=== PATIENT | male | born 1955 | race Caucasian/White ===

== ENCOUNTER → 2019-06-18 | Outpatient (CLI) | payer OTHER ==
--- NOTE | 2019-06-19 04:12 | REP ---
Clinical: Lung screening. History smoking. Comparison: None Technique: Axial low-dose noncontrast images from the thoracic inlet to the upper abdomen using lung screening technique. Findings: The lung rodgers are well-aerated. Advanced COPD/emphysematous changes with bronchiectasis and minimal scattered scarring noted. No consolidation, significant nodule or mass lesion is appreciated. No pleural effusion/reaction or pneumothorax. Mediastinum demonstrates mild atherosclerotic changes of the coronary arteries without cardiomegaly. Impression: Lung-RADS category I. Advanced COPD/emphysematous disease. No nodule or suspicious abnormality. Consider annual low-dose CT reevaluation. Electronically Signed by Anthony Charles MD 06/19/2019 04:03 A
== END ==
LOC: M RAD 09:14
PROVIDERS: ATTEND Nurse Practitioner Family
DX: Z12.2 Encounter for screening for malignant neoplasm of respiratory organs (principal); F17.210 Nicotine dependence, cigarettes, uncomplicated

== ENCOUNTER → 2019-12-11 | Outpatient (CLI) | payer OTHER ==
--- NOTE | 2019-12-11 08:33 | PFTRPT ---
Height: 67.50 Inches Weight: 182.00 Lbs BSA: 1.95 Diagnosis: J43.1 DATE OF PROCEDURE: 12/11/2019 ORDERED BY: Dr. Hooks Spirometry: Pre and post bronchodilator study of excellent technical quality. Forced vital capacity normal. FEV1 in proportion. Obstructive index is, therefore, normal. Flow Volume Loop: Expiratory limb of the flow volume loop does suggest some nonspecific limitation, but no significant bronchodilator response identified. Lung Volumes: Total lung capacity is normal. Residual volume is in proportion. Diffusing Capacity: Diffusing capacity is significantly reduced and does not correct for alveolar volume. Hemoglobin: Hemoglobin acceptable at 14.9. Airway Mechanics: Airway resistance and conductance are normal. IMPRESSION: Significant diffusing capacity impairment. Please correlate clinically. MTDD
== END ==
LOC: M CARPUL 07:37
PROVIDERS: ATTEND Internal Medicine Pulmonary Disease
DX: J43.1 Panlobular emphysema (principal)

== ENCOUNTER → 2020-07-22 | Outpatient (CLI) | payer OTHER ==
--- NOTE | 2020-07-22 09:24 | REP ---
INDICATION: NICOTINE DEPENDENCE. COMPARISON: Comparison screening lung CT study June 18, 2019.. TECHNIQUE: Low-dose screening exam. Helical scanning. 3 mm axial lung only windows. FINDINGS: Digital preliminary electrical appliance preparer radiograph shows interstitial prominence and hyperinflation as before. There are advanced emphysematous changes throughout the upper lobes unchanged. Considerable emphysematous changes are seen in the lower lobes as well. No lung mass or infiltrate is seen. No atelectasis has developed. There is a stable linear area of fibrosis in the right middle lobe and a nearby nodule is seen, 5 mm in diameter. This is unchanged from study done 1 year prior. No new pulmonary nodule is appreciated. No endobronchial disease is appreciated. There is a benign bone island in the left lateral 3rd rib. IMPRESSION: Lung RADS category 1 findings. Repeat study suggested in 1 year. Severe COPD emphysematous change. <Electronically signed by Shadi Weaver > 07/22/20 [id number]
== END ==
LOC: M RAD 08:26
PROVIDERS: ATTEND Physician Assistant
DX: Z12.2 Encounter for screening for malignant neoplasm of respiratory organs (principal); J44.9 Chronic obstructive pulmonary disease, unspecified; F17.218 Nicotine dependence, cigarettes, with other nicotine-induced disorders

== ENCOUNTER → 2023-04-13 | Outpatient (REF) | payer OTHER | LOC: M LAB REF 16:23 | PROVIDERS: ATTEND Family Medicine Addiction Medicine | DX: C61 Malignant neoplasm of prostate (principal) ==

== ENCOUNTER → 2023-04-24 | Outpatient (CLI) | payer OTHER | LOC: M PLAIMG 10:42 | PROVIDERS: ATTEND Family Medicine Addiction Medicine | DX: C79.51 Secondary malignant neoplasm of bone (principal); Z95.2 Presence of prosthetic heart valve ==